=== PATIENT | male | born 1980 | race Caucasian/White ===

== ENCOUNTER 2019-12-29 20:30 | Emergency (ER) | payer BC ==
[2019-12-29 20:45] VITALS: BP 140/91
--- NOTE | 2019-12-29 20:57 | UC ---
Throat Pain/Nasal Eddy HPI - HPI Summary HPI Summary: 39 yo male with tyoe 1 DM and hx of asthma presents with one week of worsening sinus pressure and pain upper teeth and gums sensitive ears popping no f/c no n/v/d no cp or sob - History of Current Complaint Chief Complaint: UCGeneralIllness Stated Complaint: SINUS COMPLAINT Time Seen by Provider: 12/29/19 20:36 Hx Obtained From: Patient Onset/Duration: Gradual Onset, Lasting Days Severity: Moderate Pain Intensity: 0 Pain Scale Used: 0-10 Numeric Cough: Nonproductive Associated Signs & Symptoms: Positive: Wheezing - at times, Sinus Discomfort - Epiglottits Risk Factors Epiglottis Risk Factors: Negative - Allergies/Home Medications Allergies/Adverse Reactions: Allergies Allergy/AdvReac Type Severity Reaction Status Date / Time No Known Allergies Allergy Verified 08/01/16 14:19 Home Medications: Home Medications Dulaglutide [Trulicity] 1.5 mg INJ WEEKLY 12/29/19 [History Confirmed 12/29/19] Insulin LISPRO* [HumaLOG 100 units/ml 3 ml VIAL *] 40 units SUBCUT TID 12/29/19 [History Confirmed 12/29/19] PMH/Surg Hx/FS Hx/Imm Hx Previously Healthy: Yes Endocrine History: Diabetes Cardiovascular History: Hypertension Respiratory History: Asthma, Bronchitis - Surgical History Surgical History: Yes Surgery Procedure, Year, and Place: LEFT knee surgery- [facility]- ~ 4 YEARS AGO. LEFT and right WRIST CARPAL TUNNEL RELEASE- [facility] - Family History Known Family History: Positive: Hypertension, Diabetes - Social History Alcohol Use: Weekly Alcohol Amount: 2 X PER WEEK Substance Use Type: None Smoking Status (MU): Current Some Day Smoker Type: Cigarettes Amount Used/How Often: 2 CIGARETTES PER YEAR X 5 YEARS Have You Smoked in the Last Year: Yes Review of Systems All Other Systems Reviewed And Are Negative: Yes Constitutional: Positive: Fatigue Skin: Positive: Negative Eyes: Positive: Negative ENT: Positive: Ear Ache, Nasal Discharge, Sinus Congestion, Sinus Pain/ Tenderness Respiratory: Positive: Cough Cardiovascular: Positive: Negative Gastrointestinal: Positive: Negative Genitourinary: Positive: Negative Motor: Positive: Negative Neurovascular: Positive: Negative Musculoskeletal: Positive: Negative Neurological/Mental Status: Positive: Negative Psychological: Positive: Negative Physical Exam Triage Information Reviewed: Yes Appearance: Well-Appearing, No Pain Distress, Well-Nourished Vital Signs: Initial Vital Signs Temp 97.6 F 12/29/19 20:37 Pulse 75 12/29/19 20:37 Resp 18 12/29/19 20:37 BP 140/91 12/29/19 20:37 Pulse Ox 98 12/29/19 20:37 Vital Signs Reviewed: Yes Eyes: Positive: Conjunctiva Clear ENT: Positive: Hearing grossly normal, Nasal congestion, Nasal drainage, TM bulging, TM dull, Sinus tenderness - R>L, Uvula midline. Negative: Tonsillar swelling, Tonsillar exudate, Trismus, Muffled voice Dental Exam: Normal Neck: Positive: Supple, Nontender, No Lymphadenopathy Respiratory: Positive: Lungs clear, Normal breath sounds, No respiratory distress, No accessory muscle use, Wheezing - with forced expiration only Cardiovascular: Positive: RRR Musculoskeletal: Positive: ROM Intact, Edema @ - tr pre tibial Neurological: Positive: Alert Psychological Exam: Normal Skin Exam: Normal Throat Pain/Nasal Course/Dx - Differential Dx/Diagnosis Provider Diagnosis: Acute sinusitis, Acute bronchitis Discharge ED - Sign-Out/Discharge Documenting (check all that apply): Patient Departure All imaging exams completed and their final reports reviewed: No Studies - Discharge Plan Condition: Stable Disposition: HOME Prescriptions: Amoxicillin PO (*) [Amoxicillin 875 MG (*)] 875 mg PO BID #14 tab Patient Education Materials: Sinusitis (ED), Acute Bronchitis (ED) Referrals: Eric Mclean MD [Primary Care Provider] - 5 Days (if not better) Additional Instructions: warm facial compresses saline nasal spray 2 sprays each nostril twice daily - Billing Disposition and Condition Condition: STABLE Disposition: Home
[2019-12-29] MEDS ORDERED: Amoxicillin PO (*) 250 MG CAP PO ONE (21:01)
[2019-12-29] MEDS ORDERED: Amoxicillin PO (*) 500 MG CAP PO ONE (21:01)
== END 2019-12-29 21:18 | disposition home or self-care (01) ==
LOC: UCCORT 20:30
DX: J01.90 Acute sinusitis, unspecified (principal); J20.9 Acute bronchitis, unspecified; J45.909 Unspecified asthma, uncomplicated; E10.9 Type 1 diabetes mellitus without complications; I10 Essential (primary) hypertension; H92.03 Otalgia, bilateral; F17.210 Nicotine dependence, cigarettes, uncomplicated; Z79.4 Long term (current) use of insulin
CPT/HCPCS: 99202; A9270-GY; G0463